=== PATIENT | female | born 1945 | race Caucasian/White ===

== ENCOUNTER 2017-10-27 13:48 | Emergency (ER) | payer MEDICARE, OTHER ==
--- NOTE | 2017-10-27 14:29 | EDM.PDOC ---
ED HPI GENERAL MEDICAL PROBLEM - General Chief Complaint: Lower Extremity Injury/Pain Stated Complaint: RT KNEE INJURY Time Seen by Provider: 10/27/17 14:02 Source of Information: Reports: Patient, Family () History Limitations: Reports: No Limitations - History of Present Illness INITIAL COMMENTS - FREE TEXT/NARRATIVE: The patient states that she slipped and fell onto her right knee yesterday. She has developed swelling and ecchymosis to the knee, limiting its range of motion. When she fell, she also struck her face, suffering a very small abrasion to her upper right lip, and left index finger, suffering a contusion. The patient is on Coumadin for paroxysmal atrial fibrillation. The patient's PCP is Dr. Em Jeffers. - Related Data Allergies Allergy/AdvReac Type Severity Reaction Status Date / Time flu vaccination Allergy Cannot Uncoded 09/18/15 08:38 Remember Home Meds: Home Meds Aspirin 81 mg PO DAILY 10/27/17 [History] Carboxymethylcellulose Sodium [Refresh Plus 0.5% Ophth Soln] 1 each OP BID 10/27 [History] Cholecalciferol (Vitamin D3) [Vitamin D3] 1,000 unit PO DAILY 10/27/17 [History] Diltiazem HCl [Cartia Xt] 120 mg PO DAILY 10/27/17 [History] LORazepam [Ativan] 0.5 mg PO BID PRN 10/27/17 [History] Metoprolol Succinate [Toprol XL 50mg] 50 mg PO DAILY 10/27/17 [History] Rosuvastatin [Crestor] 5 mg PO DAILY 10/27/17 [History] Simethicone 80 mg PO TID 10/27/17 [History] Warfarin [Coumadin] 5 mg PO DAILY 10/27/17 [History] Past Medical History Cardiovascular History: Reports: Afib (Paroxysmal), High Cholesterol, Hypertension Gastrointestinal History: Reports: GERD (largely resolved), Hiatal Hernia Genitourinary History: Reports: Urinary Incontinence (stress incontinence) Musculoskeletal History: Reports: Fracture (left clavicle), Osteoarthritis Psychiatric History: Reports: Anxiety Endocrine/Metabolic History: Reports: Obesity/BMI 30+, Vitamin D Deficiency, Other (See Below) (Prediabetes) - Past Surgical History HEENT Surgical History: Reports: Oral Surgery ([place] teeth extraction) Cardiovascular Surgical History: Reports: Other (See Below) (Coronary angiogram around 2007, x2) Endocrine Surgical History: Reports: Other (See Below) (Thymectomy approximately 2009) Musculoskeletal Surgical History: Reports: Knee Replacement (left, around 2007) , ORIF (Left clavicle around 1971, with removal of hardware around 1972) Social & Family History - Tobacco Use Smoking Status *Q: Never Smoker - Caffeine Use Caffeine Use: Reports: None - Alcohol Use Alcohol Use History: No - Recreational Drug Use Recreational Drug Use: No - Living Situation & Occupation Living situation: Reports: , with Spouse Occupation: Retired Review of Systems - Review of Systems Review Of Systems: ROS reveals no pertinent complaints other than HPI. ED EXAM, GENERAL - Physical Exam Exam: See Below Exam Limited By: No Limitations General Appearance: Alert, WD/WN, No Apparent Distress Eye Exam: Bilateral Eye: EOMI, Normal Inspection Ears: Normal External Exam, Hearing Grossly Normal Nose: Normal Inspection Throat/Mouth: Normal Inspection, Normal Lips, Normal Voice, No Airway Compromise Head: Normocephalic, Other (Slight abrasion to the upper right lip) Neck: Normal Inspection, Full Range of Motion Respiratory/Chest: No Respiratory Distress, Lungs Clear, Normal Breath Sounds, No Accessory Muscle Use Cardiovascular: Normal Peripheral Pulses, Regular Rate, Rhythm, No Gallop, No JVD, No Murmur, No Rub Peripheral Pulses: 3+: Radial (L), Radial (R) Extremities: Other (There is an approximately 2 cm diameter abrasion over the anterior right knee. There is significant swelling and ecchymosis to the right knee, when compared to the left. The patient is able to fully extend the right knee, but flex to only approximately 90, due to tightness and discomfort. There appears to be extravasation of hematoma to the mid-anterior right leg. Neurovascular status of the right lower extremity is intact.) Course - Vital Signs Last Recorded V/S: Last Vital Signs Temp 35.9 C 10/27/17 14:06 Pulse 80 10/27/17 14:06 Resp 20 10/27/17 14:06 BP 127/87 10/27/17 14:06 Pulse Ox 96 10/27/17 14:06 - Orders/Labs/Meds Orders: Active Orders 24 hr Category Date Time Status Knee Min 4V Rt [CR] Stat Exams 10/27/17 14:28 Taken - Re-Assessments/Exams Free Text/Narrative Re-Assessment/Exam: 10/27/17 14:29 The patient has considerable ecchymosis and likely hematoma to the right knee, with extravasation of blood down the fascial planes to about fpc down her anterior leg. She is able to fully extend her right knee, and flex to approximately 90, and there is not significant pain with ambulation, therefore I do not suspect a fracture, however, I have ordered radiographs of the right knee, just to be sure. The patient was offered pain medication, but declined. 10/27/17 15:28 5 view radiographs of the right knee. Grossly normal. No fracture or dislocation identified. Formal read per the Radiologist pending. 10/27/17 15:35 X-ray results discussed with the patient and his . The patient appears to have a right knee hematoma, exacerbated by her being on Coumadin. I'm recommending that she apply heat to the knee, and I would like her to follow-up with Dr. Nunez this coming week. She may continue to take Coumadin. Departure - Departure Time of Disposition: 15:37 Disposition: Home, Self-Care 01 Condition: Good Clinical Impression: Traumatic hematoma of right knee - Discharge Information Referrals: Em Jeffers MD [Primary Care Provider] - Slade Nunez MD [Physician] - Forms: ED Department Discharge Additional Instructions: You were seen in the emergency room for bruising and swelling to right knee, after falling on it 10/26/2017. Workup in the ER included x-rays of your right knee, which showed no bony injury. No broken bones, no dislocations. You MOST LIKELY have a hematoma (collection of blood) under the skin in your knee. Unfortunately, there is no way to get rid of this blood - it will have to liquefy and be reabsorbed on its own. We recommend that you follow-up with the orthopedic surgeon Dr. Nunez this coming week, for evaluation. If any other problems, please do not hesitate to return to the ER. - My Orders Last 24 Hours: My Active Orders 10/27/17 14:28 Knee Min 4V Rt [CR] Stat - Assessment/Plan Last 24 Hours: My Active Orders 10/27/17 14:28 Knee Min 4V Rt [CR] Stat
[2017-10-27 15:50] VITALS: BP 141/74
--- NOTE | 2017-10-29 07:29 | CR ---
Right knee: Four views of the right knee were obtained as well as additional sunrise patellar views. Diffuse subcutaneous edema is seen along the lateral knee. Mild medial joint space narrowing is seen. Patellofemoral joint appears within normal limits. No joint effusion is seen. No acute fracture or other abnormality is appreciated. Impression: 1. Subcutaneous edema. 2. Minimal joint space narrowing within the medial knee. 3. No acute bony abnormality is identified. Diagnostic code #2
== END 2017-10-27 15:48 | disposition home or self-care (01) ==
LOC: JD.ED 13:48
DX: S80.01XA Contusion of right knee, initial encounter (principal); I48.91 Unspecified atrial fibrillation; E78.00 Pure hypercholesterolemia, unspecified; I10 Essential (primary) hypertension; K21.9 Gastro-esophageal reflux disease without esophagitis; Z88.7 Allergy status to serum and vaccine; Z79.899 Other long term (current) drug therapy; Z79.01 Long term (current) use of anticoagulants; W01.0XXA Fall on same level from slipping, tripping and stumbling without subsequent striking against object, initial encounter
CPT/HCPCS: 73564-26-RT; 73564-RT; 99284

== ENCOUNTER 2018-01-17 09:52 | Emergency (ER) | payer OTHER, MEDICARE ==
[2018-01-17] MEDS ORDERED: Sodium Chloride 0.9% 10 ML Syringe FLUSH PRN (10:15)
[2018-01-17] MEDS ORDERED: HYDROmorphone 0.5 MG/0.5 ML SYRINGE IVPUSH ONE (10:15)
[2018-01-17 10:17] VITALS: BP 149/78
[2018-01-17] MEDS ORDERED: Phytonadione 5 MG in Sodium Chloride 0.9% 50 ML IV ONE (10:29)
[2018-01-17] MEDS ORDERED: Factor IX Complex Human 500 UNIT IV ONE (10:29)
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
--- NOTE | 2018-01-18 10:51 | CR ---
Left tibia and fibula: Two views of the left tibia and fibula were obtained. Soft tissue swelling is identified. Left knee prosthesis is noted. Bony structures are osteopenic. Small calcification is noted at the attachment of the Achilles tendon to the calcaneus. No discrete fracture or other abnormality is appreciated. Impression: 1. Soft tissue swelling. Other incidental findings. No acute bony abnormality is seen. 2. If patient has ankle symptoms, recommend formal ankle exam. Diagnostic code #3
== END 2018-01-17 13:00 ==
LOC: JD.ED 09:52 → SUPCPDRO 09:52 → JD.ED 13:00
DX: S80.12XA Contusion of left lower leg, initial encounter (principal); I48.91 Unspecified atrial fibrillation; E78.00 Pure hypercholesterolemia, unspecified; I10 Essential (primary) hypertension; Z79.899 Other long term (current) drug therapy; Z79.82 Long term (current) use of aspirin; Z79.01 Long term (current) use of anticoagulants; W20.8XXA Other cause of strike by thrown, projected or falling object, initial encounter
CPT/HCPCS: 36415; 73590; 80053; 85025; 85610; 93005; 96365; 96375; 99285; C9132; J1170; J3430; J7050; 99284

== ENCOUNTER 2018-12-29 16:16 | Emergency (ER) | payer MEDICARE, OTHER ==
[2018-12-29 16:25] VITALS: BP 147/99
[2018-12-29] MEDS ORDERED: Sodium Chloride 0.9% 10 ML Syringe FLUSH PRN ×2 (16:29→18:25)
[2018-12-29] MEDS ORDERED: Famotidine 20 MG/2 ML SDV IVPUSH ONE (16:31)
--- NOTE | 2018-12-29 17:42 | EDM.PDOC ---
ED HPI GENERAL MEDICAL PROBLEM - General Chief Complaint: Chest Pain Stated Complaint: CHEST PAIN Time Seen by Provider: 12/29/18 16:21 Source of Information: Reports: Patient History Limitations: Reports: No Limitations - History of Present Illness INITIAL COMMENTS - FREE TEXT/NARRATIVE: The patient presents with chest pain. This started yesterday and it is more intense today. The pain is in the middle to lower chest. She has some shortness of breath with it. She has no nausea or vomiting. She has no fever, chills or cough. She has no swelling or pain in her legs. She has a history of A-fib and she is on coumadin. She also had CABG. The pain is not made worse by exertion. She says taking a deep breath will make it worse. Onset: Gradual Duration: Day(s): (Yesterday) Location: Reports: Chest Quality: Reports: Sharp Severity: Moderate Improves with: Reports: Immobilization Worsens with: Reports: Breathing Associated Symptoms: Reports: Chest Pain, Shortness of Breath. Denies: Cough, Fever/Chills, Headaches, Nausea/Vomiting Chest Pain Score (Numeric/FACES): 8 - Related Data Allergies Allergy/AdvReac Type Severity Reaction Status Date / Time No Known Allergies Allergy Verified 12/29/18 16:25 Home Meds: Home Meds Aspirin 81 mg PO DAILY 10/27/17 [History] Carboxymethylcellulose Sodium [Refresh Plus 0.5% Ophth Soln] 1 each OP BID 10/27 [History] Cholecalciferol (Vitamin D3) [Vitamin D3] 1,000 unit PO DAILY 10/27/17 [History] Metoprolol Succinate [Toprol XL 50mg] 50 mg PO DAILY 10/27/17 [History] Rosuvastatin [Crestor] 5 mg PO DAILY 10/27/17 [History] Warfarin [Coumadin] 7.5 mg PO ASDIRECTED 10/27/17 [History] Acetaminophen [Tylenol] 500 mg PO DAILY PRN 12/29/18 [History] Warfarin [Coumadin] 10 mg PO ASDIRECTED 12/29/18 [History] Past Medical History Cardiovascular History: Reports: Afib, High Cholesterol, Hypertension Gastrointestinal History: Reports: GERD, Hiatal Hernia Genitourinary History: Reports: Urinary Incontinence Musculoskeletal History: Reports: Fracture, Osteoarthritis Psychiatric History: Reports: Anxiety Endocrine/Metabolic History: Reports: Obesity/BMI 30+, Vitamin D Deficiency, Other (See Below) - Past Surgical History HEENT Surgical History: Reports: Oral Surgery Endocrine Surgical History: Reports: Other (See Below) Musculoskeletal Surgical History: Reports: Knee Replacement, ORIF Social & Family History - Tobacco Use Smoking Status *Q: Never Smoker - Caffeine Use Caffeine Use: Reports: None - Recreational Drug Use Recreational Drug Use: No - Living Situation & Occupation Living situation: Reports: , with Spouse Occupation: Retired ED ROS GENERAL - Review of Systems Review Of Systems: See Below Constitutional: Reports: No Symptoms HEENT: Reports: No Symptoms Respiratory: Reports: Shortness of Breath Cardiovascular: Reports: Chest Pain Endocrine: Reports: No Symptoms GI/Abdominal: Reports: No Symptoms : Reports: No Symptoms Musculoskeletal: Reports: No Symptoms ED EXAM, GENERAL - Physical Exam Exam: See Below Exam Limited By: No Limitations General Appearance: Alert, No Apparent Distress Ears: Normal External Exam Nose: Normal Inspection Head: Atraumatic, Normocephalic Neck: Normal Inspection Respiratory/Chest: No Respiratory Distress, Lungs Clear, Normal Breath Sounds Cardiovascular: Regular Rate, Rhythm, No Edema, No Murmur GI/Abdominal: Soft, Non-Tender, No Organomegaly, No Mass Back Exam: Normal Inspection Extremities: Normal Inspection Neurological: Alert, Oriented, No Motor/Sensory Deficits EKG INTERPRETATION EKG Date: 12/29/18 Time: 16:19 Rhythm: A-Fib Rate (Beats/Min): 99 [place]: Normal QRS: Normal ST-T: Normal QT: Normal Course - Vital Signs Last Recorded V/S: Last Vital Signs Temp 97.0 F 12/29/18 16:21 Pulse 105 H 12/29/18 16:21 Resp 18 12/29/18 16:21 BP 147/99 H 12/29/18 16:21 Pulse Ox 90 L 12/29/18 16:21 - Orders/Labs/Meds Orders: Active Orders 24 hr Category Date Time Status Cardiac Monitoring [RC] . DIRECTED Care 12/29/18 16:30 Active EKG Documentation Completion [RC] STAT Care 12/29/18 16:30 Active Peripheral IV Care [RC] . DIRECTED Care 12/29/18 16:30 Active Chest 1V Frontal [CR] Stat Exams 12/29/18 16:30 Taken TROPONIN I [CHEM] Stat Lab 12/29/18 19:04 Ordered Sodium Chloride 0.9% [Normal Saline] 100 ml Med 12/29/18 18:30 Active IV ASDIRECTED Sodium Chloride 0.9% [Saline Flush] Med 12/29/18 16:29 Active 10 ml FLUSH ASDIRECTED PRN Sodium Chloride 0.9% [Saline Flush] Med 12/29/18 18:25 Active 10 ml FLUSH ONETIME PRN Peripheral IV Insertion Adult [OM.PC] Stat Oth 12/29/18 16:29 Ordered Medication Orders Sodium Chloride (Normal Saline) 100 mls @ 75 mls/hr IV ASDIRECTED ERASMO Last Admin: 12/29/18 18:42 Dose: 75 mls/hr Sodium Chloride (Saline Flush) 10 ml FLUSH ASDIRECTED PRN PRN Reason: Keep Vein Open Last Admin: 12/29/18 16:47 Dose: 10 ml Sodium Chloride (Saline Flush) 10 ml FLUSH ONETIME PRN PRN Reason: IV FLUSH Last Admin: 12/29/18 18:42 Dose: 10 ml Labs: Laboratory Tests 12/29/18 12/29/18 12/29/18 Range/Units 16:45 16:45 16:45 WBC 7.70 (3.98-10.04) K/mm3 RBC 4.74 (3.98-5.22) M/mm3 Hgb 14.4 (11.2-15.7) gm/L Hct 44.6 (34.1-44.9) % MCV 94.1 (79.4-94.8) fl MCH 30.4 (25.6-32.2) pg MCHC 32.3 (32.2-35.5) g/dl RDW Std Deviation 54.0 H (36.4-46.3) fL Plt Count 166 L (182-369) K/mm3 MPV 12.2 (9.4-12.3) fl Neut % (Auto) 71.3 H (34.0-71.1) % Lymph % (Auto) 15.1 L (19.3-51.7) % Christian % (Auto) 11.6 (4.7-12.5) % Eos % (Auto) 1.4 (0.7-5.8) Baso % (Auto) 0.3 (0.1-1.2) % Neut # (Auto) 5.50 (1.56-6.13) K/mm3 Lymph # (Auto) 1.16 L (1.18-3.74) K/mm3 Christian # (Auto) 0.89 H (0.24-0.36) K/mm3 Eos # (Auto) 0.11 (0.04-0.36) K/mm3 Baso # (Auto) 0.02 (0.01-0.08) K/mm3 D-Dimer, Quantitative < 0.19 L (0.19-0.50) mg/L Sodium 140 (136-145) mEq/L Potassium 5.1 (3.5-5.1) mEq/L Chloride 103 (98-107) mEq/L Carbon Dioxide 27 (21-32) mEq/L Anion Gap 15.1 H (5-15) BUN 25 H (7-18) mg/dL Creatinine 1.0 (0.55-1.02) mg/dL Est Cr Clr Drug Dosing 46.39 mL/min Estimated GFR (MDRD) 54 (>60) mL/min BUN/Creatinine Ratio 25.0 H (14-18) Glucose 123 H (83-115) mg/dL Calcium 10.0 (8.5-10.1) mg/dL Total Bilirubin 0.7 (0.2-1.0) mg/dL AST 27 (15-37) U/L ALT 51 (14-59) U/L Alkaline Phosphatase 120 H (46-116) U/L Troponin I < 0.017 (0.00-0.056) ng/mL Total Protein 8.2 (6.4-8.2) g/dl Albumin 3.7 (3.4-5.0) g/dl Globulin 4.5 gm/dL Albumin/Globulin Ratio 0.8 L (1-2) Lipase 257 (73-393) U/L Meds: Medications Generic Name Dose Route Start Last Admin Trade Name Freq PRN Reason Stop Dose Admin Sodium Chloride 100 mls @ 75 mls/hr 12/29/18 18:30 12/29/18 18:42 Normal Saline IV 75 mls/hr ASDIRECTED ERASMO Administration Sodium Chloride 10 ml 12/29/18 16:29 12/29/18 16:47 Saline Flush FLUSH 10 ml ASDIRECTED PRN Administration Keep Vein Open Sodium Chloride 10 ml 12/29/18 18:25 12/29/18 18:42 Saline Flush FLUSH 10 ml ONETIME PRN Administration IV FLUSH Discontinued Medications Generic Name Dose Route Start Last Admin Trade Name Ashley PRN Reason Stop Dose Admin Famotidine 20 mg 12/29/18 16:31 12/29/18 16:47 Pepcid IVPUSH 12/29/18 16:32 20 mg ONETIME ONE Administration Iopamidol 100 ml 12/29/18 18:25 12/29/18 18:42 Isovue-370 (76%) IVPUSH 12/29/18 18:26 100 ml ONETIME ONE Administration - Re-Assessments/Exams Free Text/Narrative Re-Assessment/Exam: 12/29/18 17:43 I ordered an IV saline lock, EKG, CXR, labs, pepcid 20mg IV. 12/29/18 19:16 Her CBC looks good. Her anion gap was slightly elevated at 15.1. Her glucose was elevated at 123. Her troponin was negative. Her lipase was normal. Her CXR shows cardiomegaly with sternotomy wires and a large gas bubble. I ordered a CT of her chest and it shows no findings of pulmonary embolism. Cardiomegaly. Previous sternotomy. Bibasilar interstitial change most likely due to fibrosis and mild areas of scarring. No acute parenchymal change is seen within either lung. increasing size or the thoracic aorta with mild aneurysmal dilatation of the ascending aorta with AP dimension of 4.3cm. This compared to previous exam of 3.9cm. She feels better. I feel this is more GI related. I have ordered a repeat troponin. Departure - Departure Time of Disposition: 19:20 Disposition: Home, Self-Care 01 Condition: Good Clinical Impression: Atypical chest pain Referrals: Em Jeffers MD [Primary Care Provider] - 1 Week Forms: ED Department Discharge Additional Instructions: Take your medication as prescribed. Please return if you are worse. - My Orders Last 24 Hours: My Active Orders 12/29/18 16:29 Sodium Chloride 0.9% [Saline Flush] 10 ml FLUSH ASDIRECTED PRN Peripheral IV Insertion Adult [OM.PC] Stat 12/29/18 16:30 Cardiac Monitoring [RC] . DIRECTED EKG Documentation Completion [RC] STAT Peripheral IV Care [RC] . DIRECTED Chest 1V Frontal [CR] Stat 12/29/18 18:25 Sodium Chloride 0.9% [Saline Flush] 10 ml FLUSH ONETIME PRN 12/29/18 18:30 Sodium Chloride 0.9% [Normal Saline] 100 ml IV ASDIRECTED 12/29/18 19:04 TROPONIN I [CHEM] Stat - Assessment/Plan Last 24 Hours: My Active Orders 12/29/18 16:29 Sodium Chloride 0.9% [Saline Flush] 10 ml FLUSH ASDIRECTED PRN Peripheral IV Insertion Adult [OM.PC] Stat 12/29/18 16:30 Cardiac Monitoring [RC] . DIRECTED EKG Documentation Completion [RC] STAT Peripheral IV Care [RC] . DIRECTED Chest 1V Frontal [CR] Stat 12/29/18 18:25 Sodium Chloride 0.9% [Saline Flush] 10 ml FLUSH ONETIME PRN 12/29/18 18:30 Sodium Chloride 0.9% [Normal Saline] 100 ml IV ASDIRECTED 12/29/18 19:04 TROPONIN I [CHEM] Stat
[2018-12-29] MEDS ORDERED: Iopamidol 755 Mg/ML 100 ML Bottle IVPUSH ONE (18:25)
[2018-12-29] MEDS ORDERED: Sodium Chloride 0.9% 100 ML IV SCH (18:30)
--- NOTE | 2018-12-29 19:14 | CT ---
CT chest Technique: Multiple axial sections through the chest were obtained. Intravenous contrast was utilized. Study was performed as a pulmonary angiogram protocol. Comparison: Previous CT chest study of 07/24/13. Findings: Ascending aorta is slightly aneurysmal with AP dimension of 4.[address] showed an AP dimension of 3.9 cm. Ascending aorta measures 2.9 cm comparing to previous study of 2.8 cm. Pulmonary arteries are well-opacified. No filling defects are seen to indicate pulmonary embolism. Mitral annulus calcification is seen. Heart is enlarged. Mild coronary artery calcification is seen. Visualized portions of the upper abdominal structures shows no discrete abnormality. Mild bibasilar interstitial change is seen most likely due to mild fibrosis with mild areas of scarring. Lungs otherwise are clear with no acute parenchymal change. Bone window settings were reviewed which shows scattered degenerative change throughout the spine. Previous sternotomy is noted. No acute osseous abnormality is seen. Impression: 1. No findings of pulmonary embolism. 2. Cardiomegaly. Previous sternotomy. 3. Bibasilar interstitial change most likely due to fibrosis and mild areas of scarring. No acute parenchymal change is seen within either lung. 4. Increasing size of the thoracic aorta with mild aneurysmal dilatation of the ascending aorta with AP dimension of 4.3 cm. This compared to previous exam of 3.9 cm. Diagnostic code #3
--- NOTE | 2018-12-30 09:40 | CR ---
Chest: Portable view of the chest was obtained. Comparison: Prior chest x-ray of 01/17/10. Heart is enlarged. Tortuous thoracic aorta is seen. Minimal atelectasis is seen within the left base. Lungs otherwise are clear. Old healed left clavicle fracture seen as well as deformity of the distal right clavicle compatible with previous healed fracture. Previous sternotomy is noted. Impression: 1. Cardiomegaly with previous sternotomy. 2. Mild left basilar atelectasis. 3. Nothing acute is seen. Diagnostic code #2
== END 2018-12-29 19:38 | disposition home or self-care (01) ==
LOC: JD.ED 16:16
DX: I71.2 Thoracic aortic aneurysm, without rupture (principal); E78.00 Pure hypercholesterolemia, unspecified; I10 Essential (primary) hypertension; M19.90 Unspecified osteoarthritis, unspecified site; F41.9 Anxiety disorder, unspecified; E66.9 Obesity, unspecified; Z79.82 Long term (current) use of aspirin; Z79.899 Other long term (current) drug therapy; Z79.01 Long term (current) use of anticoagulants
CPT/HCPCS: 36415; 71045; 71275; 80053; 83690; 84484; 85025; 85379; 93005; 96374; 99285; J3490; J7030; Q9967

== ENCOUNTER 2019-10-20 22:20 | Emergency (ER) | payer MEDICARE, OTHER ==
[2019-10-20 22:39] VITALS: BP 159/100; PULSE 81
--- NOTE | 2019-10-20 23:05 | EDM.PDOC ---
ED HPI GENERAL MEDICAL PROBLEM - General Chief Complaint: General Stated Complaint: DOUBLED MEDICATION BY MISTAKE Time Seen by Provider: 10/20/19 22:35 Source of Information: Reports: Patient, Family () History Limitations: Reports: No Limitations - History of Present Illness INITIAL COMMENTS - FREE TEXT/NARRATIVE: Mrs. Yeung is a very pleasant 74-year-old woman with a past medical history significant for hypertension, dyslipidemia, and paroxysmal atrial fibrillation, who now presents the ED stating that she took her usual evening medicines, including lisinopril, Toprol-XL, Crestor, and Coumadin, around 18:30, then accidentally took a second dose of the same medicines around 22:15. She has not developed any adverse symptoms. Here in the ED, the patient's initial BP is found to be elevated at 159/100, otherwise, she is hemodynamically stable, afebrile, saturating 97% on room air. The patient denies recent fever, chills, sore throat, ear pain, nasal or sinus congestion, cough, dyspnea, chest pain, palpitations, nausea, vomiting, constipation, diarrhea, abdominal pain, urinary symptoms, recent weight gain or weight loss, recent bloody bowel movements or black bowel movements, recent joint aches, headaches, or rashes. The patient's PCP is Dr. Em Jeffers. Her Coumadin is managed by the anticoagulation unit at [facility]. - Related Data Allergies Allergy/AdvReac Type Severity Reaction Status Date / Time No Known Allergies Allergy Verified 12/29/18 16:25 Home Meds: Home Meds Aspirin 81 mg PO DAILY 10/27/17 [History] Carboxymethylcellulose Sodium [Refresh Plus 0.5% Ophth Soln] 1 each OP BID 10/27/17 [History] Cholecalciferol (Vitamin D3) [Vitamin D3] 1,000 unit PO DAILY 10/27/17 [History] Metoprolol Succinate [Toprol XL 50mg] 100 mg PO DAILY 10/27/17 [History] Rosuvastatin [Crestor] 5 mg PO DAILY 10/27/17 [History] Warfarin [Coumadin] 7.5 mg PO ASDIRECTED 10/27/17 [History] Acetaminophen [Tylenol] 650 mg PO Q4H PRN 12/29/18 [History] Warfarin [Coumadin] 5 mg PO ASDIRECTED 12/29/18 [History] lisinopriL [Lisinopril] 5 mg PO DAILY 10/20/19 [History] Past Medical History Cardiovascular History: Reports: Afib (paroxysmal), Aneurysm (Asending aorta), High Cholesterol, Hypertension Gastrointestinal History: Reports: GERD, Hiatal Hernia Genitourinary History: Reports: Urinary Incontinence (stress incontinence) Musculoskeletal History: Reports: Fracture (left clavicle), Osteoarthritis Psychiatric History: Reports: Anxiety Endocrine/Metabolic History: Reports: Vitamin D Deficiency, Other (See Below) (Prediabetes) - Past Surgical History HEENT Surgical History: Reports: Oral Surgery (wisdom teeth extraction) Cardiovascular Surgical History: Reports: Other (See Below) (Coronary angiogram x 2 around 2007) Endocrine Surgical History: Reports: Other (See Below) (Thymectomy around 2009) Musculoskeletal Surgical History: Reports: Knee Replacement (left, around 2007), ORIF (left clavicle around 1971 with hardware removal around 1972) Social & Family History - Tobacco Use Smoking Status *Q: Never Smoker - Caffeine Use Caffeine Use: Reports: None - Alcohol Use Alcohol Use History: No - Recreational Drug Use Recreational Drug Use: No - Living Situation & Occupation Living situation: Reports: , with Spouse Occupation: Retired ED ROS GENERAL - Review of Systems Review Of Systems: Comprehensive ROS is negative, except as noted in HPI. ED EXAM, GENERAL - Physical Exam Exam: See Below Exam Limited By: No Limitations General Appearance: Alert, WD/WN, No Apparent Distress Eye Exam: Bilateral Eye: EOMI, Normal Inspection Ears: Normal External Exam, Hearing Grossly Normal Nose: Normal Inspection Throat/Mouth: Normal Inspection, Normal Lips, Normal Voice, No Airway Compromise Head: Atraumatic, Normocephalic Neck: Normal Inspection, Full Range of Motion Respiratory/Chest: No Respiratory Distress, Lungs Clear, Normal Breath Sounds, No Accessory Muscle Use Cardiovascular: Normal Peripheral Pulses, No Edema, No Gallop, No JVD, No Murmur, No Rub, Irregularly Irregular (rate controlled) Peripheral Pulses: 3+: Radial (L), Radial (R) GI/Abdominal: Normal Bowel Sounds, Soft, Non-Tender, No Organomegaly, No Distention, No Abnormal Bruit, No Mass (Female) Exam: Deferred Rectal (Female) Exam: Deferred Back Exam: Normal Inspection, Full Range of Motion, NT Extremities: Normal Inspection, Normal Range of Motion, No Pedal Edema, Normal Capillary Refill Neurological: Alert, Oriented, Normal Cognition, No Motor/Sensory Deficits Psychiatric: Normal Affect Skin Exam: Warm, Dry, Intact, Normal Color, No Rash Course - Vital Signs Last Recorded V/S: Last Vital Signs Temp 36.6 C 10/20/19 22:34 Pulse 81 10/20/19 22:34 Resp 16 10/20/19 22:34 BP 159/100 H 10/20/19 22:34 Pulse Ox 97 10/20/19 22:34 - Re-Assessments/Exams Free Text/Narrative Re-Assessment/Exam: 10/20/19 22:59 As above, the patient took an extra dose of lisinopril, Toprol-XL, Crestor, and Coumadin tonight. She is asymptomatic. I explained to the patient that there is no way to get the medicines out of her system once in. With respect to her lisinopril and Toprol-XL, she should not have a problem tonight, because she will be sleeping, but I recommended that in the morning she be careful when she gets up. If she is lightheaded, she should withhold her a.m. blood pressure medicines, however, if she is feeling well, she may take her usual a.m. medicines. With respect to her Coumadin, I recommended that she contact the anticoagulation unit at [facility] to let them know what happened. They can then make recommendations as to whether or not she should withhold a dose of Coumadin or not. Departure - Departure Time of Disposition: 23:00 Disposition: Home, Self-Care 01 Condition: Good Clinical Impression: Accidental medication error - Discharge Information *PRESCRIPTION DRUG MONITORING PROGRAM REVIEWED*: Not Applicable *COPY OF PRESCRIPTION DRUG MONITORING REPORT IN PATIENT MG: Not Applicable Referrals: Em Jeffers MD [Primary Care Provider] - Forms: ED Department Discharge Additional Instructions: You were seen in the emergency room after accidentally taking an extra dose of your lisinopril, Toprol-XL, Crestor, and Coumadin. We recommend that in the morning, when you wake up, that you rise carefully. If you are feeling lightheaded, do not take your usual morning blood pressure medicines, however, if you are feeling normal, you may take your usual blood pressure medicines. We recommend that you call the anticoagulation unit at [facility] in the morning, to let them know of your extra dose of Coumadin. They can then recommend whether or not you should withhold a dose of Coumadin or not. If any other problems, please do not hesitate to return to the ER. Sepsis Event Note (ED) - Evaluation Sepsis Screening Result: No Definite Risk - Focused Exam Vital Signs: Vital Signs Temp Pulse Resp BP Pulse Ox 10/20/19 22:34 36.6 C 81 16 159/100 H 97
== END 2019-10-20 23:09 | disposition home or self-care (01) ==
LOC: JD.ED 22:20
DX: T46.4X1A Poisoning by angiotensin-converting-enzyme inhibitors, accidental (unintentional), initial encounter (principal); T46.6X1A Poisoning by antihyperlipidemic and antiarteriosclerotic drugs, accidental (unintentional), initial encounter; T45.511A Poisoning by anticoagulants, accidental (unintentional), initial encounter; T44.7X1A Poisoning by beta-adrenoreceptor antagonists, accidental (unintentional), initial encounter; I10 Essential (primary) hypertension; E78.5 Hyperlipidemia, unspecified; I48.0 Paroxysmal atrial fibrillation; Z79.82 Long term (current) use of aspirin; Z79.899 Other long term (current) drug therapy; Z79.01 Long term (current) use of anticoagulants
CPT/HCPCS: 99282; 99283

== ENCOUNTER 2022-05-29 11:28 | Emergency (ER) | payer MEDICARE, OTHER ==
[2022-05-29 11:43] VITALS: BP 130/84; PULSE 77
[2022-05-29] MEDS ORDERED: Benzonatate 100 MG Cap PO ONE (11:57)
[2022-05-29 12:46] LABS: CORONAVIRUS COVID-19 NAA NEGATIVE (NEGATIVE)
== END 2022-05-29 14:23 | disposition home or self-care (01) ==
LOC: JD.ED 11:28
DX: R05.1 Acute cough (principal); R09.82 Postnasal drip; I48.91 Unspecified atrial fibrillation; E78.00 Pure hypercholesterolemia, unspecified; I10 Essential (primary) hypertension; K21.9 Gastro-esophageal reflux disease without esophagitis; M19.90 Unspecified osteoarthritis, unspecified site; Z79.899 Other long term (current) drug therapy; Z79.01 Long term (current) use of anticoagulants; Z79.82 Long term (current) use of aspirin; Z20.822 Contact with and (suspected) exposure to COVID-19
CPT/HCPCS: 0241U; 36415; 71045; 80053; 83735; 85025; 99283; A9270; 99284